=== PATIENT | male | born 1985 | race Caucasian/White ===

== ENCOUNTER 2023-09-30 10:05 | Emergency (ER) | payer OTHER ==
[2023-09-30] MEDS ORDERED: Ketorolac Tromethamine 30 MG (1 mL) VIAL ONE (11:06)
== END 2023-09-30 11:45 | disposition home or self-care (01) ==
LOC: ERS 10:05
DX: M54.42 Lumbago with sciatica, left side (principal); M53.3 Sacrococcygeal disorders, not elsewhere classified; F17.210 Nicotine dependence, cigarettes, uncomplicated; F17.290 Nicotine dependence, other tobacco product, uncomplicated; Z55.6 Problems related to health literacy
CPT/HCPCS: 96372; 99283; J1885

== ENCOUNTER 2023-11-13 10:35 | Inpatient (IN) | payer OTHER ==
[~2023-11-13 10:35] MED LIST: Iopamidol-370 76% 500 ML MDV (1 ML CHARGE) ONE
[2023-11-13 12:18] LABS: #Basophils 0.03 10x3/uL (0.0-0.2); %Basophils 0.5 % (0.0-1.0); %Eosinophils 3.6 % (0.0-10.0); %Lymphocytes 24.4 % (21.0-51.0); %Monocytes 11.5 % (0.0-10.0); %Neutrophils 59.7 % (42.0-75.0); Hematocrit 37.6 % (42.0-52.0); Mean Corpuscular HGB CONC 34.6 g/dL (32.0-36.0); Mean Corpuscular Hemoglobin 29.9 pg (27.0-31.0); Mean Corpuscular Volume 86.4 fL (78.0-98.0); Mean Platelet Volume 8.9 fL (7.4-10.4); Platelet Count 213 10x3/uL (130-400); RBC Distribution Width 13.8 % (11.5-14.5); Red Blood Cell (RBC) Count 4.35 mill/uL (4.70-6.10)
[2023-11-13 12:48] LABS: ALT (SGPT) 21 U/L (8-55); AST (SGOT) 22 U/L (5-34); Albumin 3.5 g/dL (3.5-5.0); Alkaline Phosphatase 55 U/L (40-110); Anion Gap 12 mmol/L (10-20); BUN (Urea Nitrogen) 19 mg/dL (8.9-20.6); Bilirubin, Total 0.6 mg/dL (0.2-1.2); Calc. Creatinine Clearance 0 mL/min (70-130); Calcium 9.2 mg/dL (7.8-10.44); Carbon Dioxide 24 mmol/L (22-29); Chloride 104 mmol/L (98-107); Estimated GFR 111; Glucose 91 mg/dL (70-105); Potassium 4.1 mmol/L (3.5-5.1); Protein, Total 7.5 g/dL (6.0-8.3); Sodium 136 mmol/L (136-145)
[2023-11-13] MEDS ORDERED: Lidocaine 1% w/Epinephrine 1:100K 20 ML VIAL ONE (13:18)
[2023-11-13] MEDS ORDERED: Ipratropium/Albuterol 3 ML NEB NEB PRN (14:08)
[2023-11-13] MEDS ORDERED: Ondansetron ODT 4 MG TAB PO PRN (14:08)
[2023-11-13] MEDS ORDERED: Morphine 2 MG/ML VIAL SLOW IVP PRN (14:08)
[2023-11-13] MEDS ORDERED: Sodium Chloride 0.9% 100 ML ONE (14:44)
[2023-11-13] MEDS ORDERED: Cefepime 2 GM VIAL ONE (14:44)
[2023-11-13] MEDS ORDERED: Vancomycin 1 GM/200 ML (FROZEN) BAG ONE (14:52)
[2023-11-13 16:08] VITALS: BMI 27.5
[2023-11-13] MEDS: Acetaminophen 325 MG TAB PO SCH (17:04)
[2023-11-13] MEDS: Sodium Chloride 0.9% 1,000 ML IV SCH (17:05)
[2023-11-13 18:40] LABS: Bacteria/HPF None Seen HPF (None Seen); RBC/HPF 0-3 HPF (0-3); Squamous Epithelial None Seen HPF (0-3); WBC/HPF 0-3 HPF (0-3)
[2023-11-13] MEDS: cefTRIAXone\\ROCEPHIN 2 GM in Sodium Chloride 0.9% 100 ML IVPB SCH (20:40)
[2023-11-13] MEDS: Famotidine/PF 20 mg/2ml Vial SLOW IVP SCH (21:02)
[2023-11-13] MEDS: Doxycycline 100 MG CAP PO SCH (21:03)
[2023-11-13] MEDS: metroNIDAZOLE 500 MG TAB PO SCH (21:03)
[2023-11-13] MEDS: Acetaminophen 500 MG TAB PO SCH (21:04)
[2023-11-13] MEDS: Gabapentin 300 MG CAP PO SCH (22:00)
[2023-11-14 06:28] LABS: #Basophils 0.03 10x3/uL (0.0-0.2); %Basophils 0.8 % (0.0-1.0); %Eosinophils 6.1 % (0.0-10.0); %Lymphocytes 38.9 % (21.0-51.0); %Monocytes 17.2 % (0.0-10.0); %Neutrophils 36.5 % (42.0-75.0); Hematocrit 37.5 % (42.0-52.0); Hemoglobin 12.5 g/dL (14.0-18.0); Mean Corpuscular HGB CONC 33.3 g/dL (32.0-36.0); Mean Corpuscular Hemoglobin 28.9 pg (27.0-31.0); Mean Corpuscular Volume 86.6 fL (78.0-98.0); Mean Platelet Volume 9.1 fL (7.4-10.4); Platelet Count 213 10x3/uL (130-400); Red Blood Cell (RBC) Count 4.33 mill/uL (4.70-6.10)
[2023-11-14 06:45] LABS: Anion Gap 9 mmol/L (10-20); BUN (Urea Nitrogen) 11 mg/dL (8.9-20.6); Calc. Creatinine Clearance 150 mL/min (70-130); Calcium 8.9 mg/dL (7.8-10.44); Carbon Dioxide 24 mmol/L (22-29); Chloride 108 mmol/L (98-107); Estimated GFR 116; Glucose 94 mg/dL (70-105); Sodium 137 mmol/L (136-145)
[2023-11-14 07:52] VITALS: BP 111/71; TEMP 97.8
[2023-11-14] MEDS: Sulfameth/Trimethoprim DS 800-160mg TAB PO SCH (08:08)
[2023-11-14] MEDS ORDERED: [UNRECOGNIZED DRUG - OTHER] PO SCH (09:00)
[2023-11-14 14:34] LABS: Chlam.trachomatis by PCR,Urine Not Detected (NotDetected); GC N.gonorrhoeae PCR,UrineVOID Not Detected (NotDetected)
[2023-11-14] MEDS ORDERED: Ciprofloxacin 500 MG TAB PO SCH (20:00)
[2023-11-15 11:14] LABS: Syphilis Antibody Nonreactive (Nonreactive); Syphilis Antibody Index 0.07 S/CO (<1.00 Non-Reactive)
[2023-11-15 12:38] LABS: %CD4 (Helper/Inducer) 10.9 % (30.8-58.5); Absolute CD4 185 /uL (359-1519); Lymphocytes/Gated Cell Count 1.7 x10E3/uL (0.7-3.1); Total Lymphocyte 30 % (Not Estab.); WBC Total Count 5.8 x10E3/uL (3.4-10.8)
== END 2023-11-14 10:25 | disposition home or self-care (01) | DRG 345 ==
LOC: ERS 10:35 → SJJU 15:52 → OBSVTOIN 15:52
PROVIDERS: ADMIT Student in an Organized Health Care Education/Training Program; ATTEND Student in an Organized Health Care Education/Training Program
PROC: 0D9P0ZZ Drainage of Rectum, Open Approach (ICD-10-PCS; principal; 2023-11-13)
DX: K61.1 Rectal abscess (principal); D84.9 Immunodeficiency, unspecified; F17.210 Nicotine dependence, cigarettes, uncomplicated; Z21 Asymptomatic human immunodeficiency virus [HIV] infection status; Z79.899 Other long term (current) drug therapy; Z90.49 Acquired absence of other specified parts of digestive tract; Z98.890 Other specified postprocedural states
CPT/HCPCS: 36415; 74177; 80048; 80053; 81015; 83605; 85025; 86361; 86780; 87040; 87070; 87205; 87491; 87591; 96374; 96375; J0692; J0696; J3370-JW; J3490; J7050; Q9967; S0028